=== PATIENT | male | born 1930 | race Caucasian/White ===

== ENCOUNTER 2019-01-19 10:11 | Inpatient (IN) | payer MEDICARE, BC ==
[2019-01-19] MEDS: ONDANSETRON 4 MG INJ IV (10:45)
[2019-01-19] MEDS: SOD CHLORIDE 0.9% 1,000 ML IV (12:48)
[2019-01-19] MEDS: CEFEPIME 2GM/50 ML (PMX) 50 ML IVPB (12:49)
[2019-01-19] MEDS ORDERED: MAGNESIUM CITRATE 300 ML BTL PO (15:30)
[2019-01-19] MEDS ORDERED: NACL 0.9% 3 ML SYG IV (15:30)
[2019-01-19] MEDS ORDERED: ONDANSETRON 4 MG INJ IV ×2 (15:30→16:00)
[2019-01-19] MEDS: DOCUSATE SODIUM 100 MG CAP PO ×2 (15:30→21:46)
[2019-01-19] MEDS ORDERED: ACETAMINOPHEN 325 MG TAB PO (16:00)
[2019-01-19] MEDS: DEXTROSE 5%-0.45% NACL 1,000 ML IV (16:55)
[2019-01-19] MEDS: PIPER-TAZO 3.375 GM IV (PMX) 100 ML IVPB ×2 (19:22→23:40)
[2019-01-19] MEDS ORDERED: APIXABAN 5 MG TABLET PO (21:00)
[2019-01-19] MEDS ORDERED: CEFEPIME 1GM/50 ML (PMX) 50 ML IVPB (21:00)
[2019-01-19] MEDS: TERAZOSIN 5 MG CAP PO (21:47)
[2019-01-20] MEDS: DEXTROSE 5%-0.45% NACL 1,000 ML IV ×3 (02:30→19:16)
[2019-01-20] MEDS: PIPER-TAZO 3.375 GM IV (PMX) 100 ML IVPB ×4 (05:26→23:14)
[2019-01-20] MEDS: DOCUSATE SODIUM 100 MG CAP PO ×2 (09:21→20:13)
[2019-01-20] MEDS: ACETAMINOPHEN 325 MG TAB PO (09:21)
[2019-01-20] MEDS ORDERED: BISACODYL (EC) 5 MG TAB PO (11:00)
[2019-01-20] MEDS ORDERED: NA PHOSPHATE/BIPHOS 133 ML ENEMA PR (13:00)
[2019-01-20] MEDS: NA PHOSPHATE/BIPHOS 133 ML ENEMA PR (14:13)
[2019-01-20] MEDS: BISACODYL (EC) 5 MG TAB PO (14:14)
[2019-01-20] MEDS: PANTOPRAZOLE IV 80 MG in SOD CHLORIDE 0.9% 100 ML IVPB (14:48)
[2019-01-20] MEDS: PANTOPRAZOLE IV 80 MG in SOD CHLORIDE 0.9% 100 ML IV ×2 (14:53→23:15)
[2019-01-20] MEDS: PANTOPRAZOLE 40 MG INJ IV (18:00)
[2019-01-20] MEDS: TERAZOSIN 5 MG CAP PO (20:13)
[2019-01-21] MEDS: PANTOPRAZOLE 40 MG INJ IV ×3 (06:00→17:03)
[2019-01-21] MEDS: MAGNESIUM HYDROXIDE 30ML CUP PO (06:07)
[2019-01-21] MEDS: DEXTROSE 5%-0.45% NACL 1,000 ML IV ×2 (06:07→17:03)
[2019-01-21] MEDS: PIPER-TAZO 3.375 GM IV (PMX) 100 ML IVPB (06:07)
[2019-01-21] MEDS: DOCUSATE SODIUM 100 MG CAP PO ×2 (09:09→21:06)
[2019-01-21] MEDS: POLYETHYLENE GLYCOL 17 GM PACKET NGT (09:09)
[2019-01-21] MEDS: BISACODYL 10 MG SUPP PR (09:09)
[2019-01-21] MEDS: CEFAZOLIN 1 GM/50 ML (PMX) 50 ML IVPB ×2 (13:21→21:07)
[2019-01-21] MEDS ORDERED: PENDING SANTYL ORDER FOR WOUND CARE XX (14:00)
[2019-01-21] MEDS: LACTULOSE 30ML CUP PO (18:01)
[2019-01-21] MEDS: TERAZOSIN 5 MG CAP PO (21:06)
[2019-01-22] MEDS: DEXTROSE 5%-0.45% NACL 1,000 ML IV ×2 (03:06→18:07)
[2019-01-22] MEDS: PANTOPRAZOLE 40 MG INJ IV ×2 (05:23→18:07)
[2019-01-22] MEDS: CEFAZOLIN 1 GM/50 ML (PMX) 50 ML IVPB ×3 (05:28→21:09)
[2019-01-22] MEDS ORDERED: hydrALAzine 20 MG INJ IV (08:00)
[2019-01-22] MEDS: POLYETHYLENE GLYCOL 17 GM PACKET NGT (08:15)
[2019-01-22] MEDS: ENALAPRILAT 1.25 MG INJ IV (08:15)
[2019-01-22] MEDS: DOCUSATE SODIUM 100 MG CAP PO (08:16)
[2019-01-22] MEDS: IOHEXOL 300MG/ML 150 ML BTL (10:14)
[2019-01-22] MEDS: SENNA/DOCUSATE NA (8.6MG/50MG) TAB PO ×2 (18:07→21:11)
[2019-01-22] MEDS ORDERED: SENNA/DOCUSATE NA (8.6MG/50MG) TAB PO (21:00)
[2019-01-22] MEDS: BALSAM PERU/CASTOR OIL 60 GM TUBE TOP (21:11)
[2019-01-22] MEDS: TERAZOSIN 5 MG CAP PO (21:11)
[2019-01-22] MEDS: ASCORBIC ACID 500 MG TAB PO (21:11)
[2019-01-22] MEDS: LACTULOSE 30ML CUP PO (21:12)
[2019-01-23] MEDS: DEXTROSE 5%-0.45% NACL 1,000 ML IV ×3 (00:30→16:25)
[2019-01-23] MEDS: PANTOPRAZOLE 40 MG INJ IV (05:20)
[2019-01-23] MEDS: CEFAZOLIN 1 GM/50 ML (PMX) 50 ML IVPB (05:20)
[2019-01-23] MEDS: SENNA/DOCUSATE NA (8.6MG/50MG) TAB PO ×2 (08:22→21:29)
[2019-01-23] MEDS: BISACODYL (EC) 5 MG TAB PO (08:22)
[2019-01-23] MEDS: ASCORBIC ACID 500 MG TAB PO ×2 (08:22→21:28)
[2019-01-23] MEDS: MULTIVITAMINS THERAPEUTIC TAB PO (08:22)
[2019-01-23] MEDS: POLYETHYLENE GLYCOL 17 GM PACKET NGT (08:22)
[2019-01-23] MEDS: BALSAM PERU/CASTOR OIL 60 GM TUBE TOP ×2 (08:23→21:30)
[2019-01-23] MEDS ORDERED: OLOPATADINE 0.1% 5 ML OPH BOTH EYES (13:30)
[2019-01-23] MEDS: CEPHALEXIN 500 MG CAP PO ×2 (14:57→21:29)
[2019-01-23] MEDS: PANTOPRAZOLE (EC) 40 MG TAB PO (17:55)
[2019-01-23] MEDS: TERAZOSIN 5 MG CAP PO (21:30)
[2019-01-24] MEDS: DEXTROSE 5%-0.45% NACL 1,000 ML IV (03:31)
[2019-01-24] MEDS: PANTOPRAZOLE (EC) 40 MG TAB PO ×2 (06:00→17:49)
[2019-01-24] MEDS: CEPHALEXIN 500 MG CAP PO ×3 (06:00→21:14)
[2019-01-24] MEDS: MULTIVITAMINS THERAPEUTIC TAB PO (09:12)
[2019-01-24] MEDS: ASCORBIC ACID 500 MG TAB PO ×2 (09:12→21:15)
[2019-01-24] MEDS: ZINC SULFATE 220 MG CAP PO (09:12)
[2019-01-24] MEDS: POLYETHYLENE GLYCOL 17 GM PACKET NGT (09:12)
[2019-01-24] MEDS: SENNA/DOCUSATE NA (8.6MG/50MG) TAB PO ×2 (09:12→21:30)
[2019-01-24] MEDS: FOLIC ACID 1 MG TAB PO (09:12)
[2019-01-24] MEDS: BALSAM PERU/CASTOR OIL 60 GM TUBE TOP ×2 (09:13→21:16)
[2019-01-24] MEDS ORDERED: POLYETHYLENE GLYCOL 17 GM PACKET PO (13:00)
[2019-01-24] MEDS: TERAZOSIN 5 MG CAP PO (21:00)
[2019-01-24] MEDS: APIXABAN 5 MG TABLET PO (21:14)
[2019-01-25] MEDS: CEPHALEXIN 500 MG CAP PO ×2 (05:07→13:01)
[2019-01-25] MEDS: PANTOPRAZOLE (EC) 40 MG TAB PO ×2 (05:07→17:06)
[2019-01-25] MEDS: FOLIC ACID 1 MG TAB PO (09:25)
[2019-01-25] MEDS: SENNA/DOCUSATE NA (8.6MG/50MG) TAB PO (09:26)
[2019-01-25] MEDS: ASCORBIC ACID 500 MG TAB PO (09:26)
[2019-01-25] MEDS: APIXABAN 5 MG TABLET PO (09:27)
[2019-01-25] MEDS: MULTIVITAMINS THERAPEUTIC TAB PO (09:27)
[2019-01-25] MEDS: BALSAM PERU/CASTOR OIL 60 GM TUBE TOP (09:30)
== END 2019-01-25 19:10 | DRG 690 ==
LOC: E/R 10:11 → MS3 15:41
DX: N39.0 Urinary tract infection, site not specified (principal); K92.1 Melena; J90 Pleural effusion, not elsewhere classified; J21.9 Acute bronchiolitis, unspecified; K43.6 Other and unspecified ventral hernia with obstruction, without gangrene; K59.09 Other constipation; K43.9 Ventral hernia without obstruction or gangrene; G62.9 Polyneuropathy, unspecified; D64.9 Anemia, unspecified; K40.90 Unilateral inguinal hernia, without obstruction or gangrene, not specified as recurrent; R59.0 Localized enlarged lymph nodes; I10 Essential (primary) hypertension; N40.0 Benign prostatic hyperplasia without lower urinary tract symptoms; Z87.891 Personal history of nicotine dependence; Z86.718 Personal history of other venous thrombosis and embolism; Z79.01 Long term (current) use of anticoagulants
CPT/HCPCS: 36415; 71045; 71250; 74176; 74250; 76604; 80048; 80053; 80061; 80069; 81001; 82270; 82378; 83036; 83615; 83690; 83735; 84100; 84145; 84153; 84154; 84443; 84484; 85025; 85335; 85610; 85651; 85730; 86021; 86038; 86480; 86635; 86698; 87040-91; 87086; 93005; 93970; 96374; 96375; 97110; 97116; 97162; 97165; 97530; 97535; 99285-25